=== PATIENT | female | born 1930 | race Caucasian/White ===

== ENCOUNTER → 2016-08-22 | Outpatient (CLI) | payer OTHER | LOC: MMPC 09:00 | PROVIDERS: ATTEND Family Medicine | DX: I10 Essential (primary) hypertension (principal); E03.9 Hypothyroidism, unspecified; E55.9 Vitamin D deficiency, unspecified; Z86.19 Personal history of other infectious and parasitic diseases | CPT/HCPCS: 99214; G0463 ==

== ENCOUNTER → 2017-01-01 | Outpatient (CLI) | payer OTHER | LOC: MMPC 09:00 | PROVIDERS: ATTEND Physician Assistant Medical | DX: L03.113 Cellulitis of right upper limb (principal); W57.XXXA Bitten or stung by nonvenomous insect and other nonvenomous arthropods, initial encounter | CPT/HCPCS: 99213; G0463 ==

== ENCOUNTER → 2017-01-10 | Outpatient (CLI) | payer OTHER | LOC: MMPC 09:00 | PROVIDERS: ATTEND Family Medicine | DX: B02.9 Zoster without complications (principal); E03.9 Hypothyroidism, unspecified; E53.8 Deficiency of other specified B group vitamins | CPT/HCPCS: 99213; G0463 ==